=== PATIENT | female | born 1975 | race Caucasian/White ===

== ENCOUNTER 2018-03-20 07:13 | Inpatient (IN) | payer OTHER ==
[2018-03-20] MEDS ORDERED: Ondansetron PF 4 MG/2 ML Vial ONE ×3 (07:30→17:20)
[2018-03-20] MEDS ORDERED: Morphine 4 MG/ML VIAL ONE ×2 (07:30→08:52)
[2018-03-20] MEDS ORDERED: Lidocaine 1% w/Epinephrine 1:100K 20 ML VIAL ONE (07:45)
[2018-03-20 07:56] LABS: #Eosinphils 0.1 thou/uL (0.0-0.7); #Lymphocytes 1.5 thou/uL (1.20-3.40); #Monocytes 0.3 thou/uL (0.11-0.59); #Neutrophils 2.6 thou/uL (1.40-6.50); %Basophils 0.5 % (0.0-1.0); %Eosinophils 1.8 % (0.0-10.0); %Lymphocytes 33.2 % (21.0-51.0); %Monocytes 6.1 % (0.0-10.0); %Neutrophils 58.3 % (42.0-75.0); Hemoglobin 12.9 g/dL (12.0-16.0); Mean Corpuscular HGB CONC 32.1 g/dL (32.0-36.0); Mean Corpuscular Hemoglobin 28.5 pg (27.0-31.0); Mean Corpuscular Volume 88.8 fL (78.0-98.0); Mean Platelet Volume 9.2 fL (7.4-10.4); Platelet Count 211 thou/uL (130-400); RBC Distribution Width 11.9 % (11.5-14.5); Red Blood Cell (RBC) Count 4.52 mill/uL (4.20-5.40); White Blood Cell (WBC) Count 4.5 thou/uL (4.8-10.8)
[2018-03-20 07:57] LABS: BHCG - Serum Negative (NEGATIVE); Pregs Control Background? CLEAR/WHITE (CLR/WHITE); Pregs Control Bar Appear? YES (CONTROL BAR)
[2018-03-20 08:06] LABS: ALT (SGPT) 22 U/L (8-55); AST (SGOT) 19 U/L (5-34); Albumin 4.3 g/dL (3.5-5.0); Alkaline Phosphatase 67 U/L (40-150); Anion Gap 12 mmol/L (10-20); BUN (Urea Nitrogen) 12 mg/dL (7.0-18.7); Calc. Creatinine Clearance 0 mL/min (70-130); Calcium 9.1 mg/dL (7.8-10.44); Carbon Dioxide 27 mmol/L (22-29); Chloride 106 mmol/L (98-107); Estimated GFR-MDRD 74; Globulin 2.5 g/dL (2.4-3.5); Glucose 116 mg/dL (70-105); Potassium 3.7 mmol/L (3.5-5.1); Protein, Total 6.8 g/dL (6.0-8.3); Sodium 141 mmol/L (136-145)
[2018-03-20] MEDS ORDERED: Bacitracin Zinc 1 Packet ONE (08:33)
[2018-03-20] MEDS ORDERED: CEFAZOLIN 1 GM VIAL ONE ×2 (09:00→17:06)
[2018-03-20] MEDS ORDERED: Ondansetron PF 4 MG/2 ML Vial IV PRN ×2 (09:04→10:00)
[2018-03-20] MEDS ORDERED: Morphine 4 MG/ML VIAL SLOW IVP PRN ×2 (09:04→10:00)
--- NOTE | 2018-03-20 09:13 | RAD ---
FRONTAL VIEW CHEST: Indication: Pre-operative assessment. Fall on ice with injury and pain. FINDINGS: There is no lobar consolidation, effusion, or pneumothorax. Mild elevation of the left hemidiaphragm. The cardiac silhouette is normal in size. There is left convexity curvature of the thoracic spine. IMPRESSION: No focal consolidation. POS: TPC
--- NOTE | 2018-03-20 09:14 | RAD ---
LEFT LEG TWO VIEWS SERIES: Indication: Fall on ice with injury and pain. FINDINGS: There is a mildly displaced fracture involving the distal diaphysis of the tibia with approximately 1 /3 shaft width lateral displacement of major distal fracture fragment and approximately 1 cortex widt h posterior displacement. There is mild soft tissue prominence. IMPRESSION: Mildly displaced distal tibial diaphyseal fracture. POS: TPC
[2018-03-20] MEDS ORDERED: TETANUS AND DIPHTHERIA TOX/PF 0.5 ML DISP.SYRIN IM SCH ×2 (09:15→10:00)
[2018-03-20] MEDS ORDERED: Communication Order-Pharmacy FS SCH (09:15)
[2018-03-20] MEDS ORDERED: Sodium Chloride 0.9% 100 ML IV SCH (09:15)
--- NOTE | 2018-03-20 09:33 | RAD ---
TWO VIEWS LEFT KNEE: History: Pain, trauma, fall. FINDINGS: No fracture. No cortical irregularity or periosteal reaction. No joint effusion. Joint spaces are pre served. No malalignment. IMPRESSION: No post-traumatic change. POS: CARINA
[2018-03-20] MEDS ORDERED: [UNRECOGNIZED DRUG - REMARK] FS PRN (10:00)
[2018-03-20] MEDS ORDERED: Fentanyl 100 MCG/2 ML VIAL ONE ×4 (11:37→16:00)
[2018-03-20] MEDS ORDERED: Ketorolac Tromethamine 30 MG/ML VIAL IVP SCH ×2 (12:00)
[2018-03-20] MEDS ORDERED: Midazolam HCl 2 mg/2 ml Vial ONE (12:40)
[2018-03-20] MEDS ORDERED: Ondansetron PF 4 MG/2 ML Vial IVP PRN (12:59)
[2018-03-20] MEDS ORDERED: Ropivacaine HCl/PF 250 ML in Premix Bag 1 BAG NERVE BLCK SCH (12:59)
[2018-03-20] MEDS ORDERED: Zolpidem Tartrate 5 MG TAB PO PRN (12:59)
[2018-03-20] MEDS ORDERED: Promethazine HCl 25 MG/ML VIAL IM PRN (12:59)
[2018-03-20] MEDS ORDERED: fentaNYL Citrate/PF 2,000 MCG in Sodium Chloride 0.9% 60 ML IV PRN (13:03)
--- NOTE | 2018-03-20 14:43 | CON ---
DATE OF CONSULTATION: 03/20/2018 HISTORY OF PRESENT ILLNESS: This is a very pleasant 43-year-old woman, who was on her way to work here at [facility] [employer] when she stepped on her back porch steps which were icy. She fell and suffered an open tibia fracture grade 2. PAST MEDICAL HISTORY: Positive for hypothyroidism. She takes [place] Thyroid for that, otherwise negative. MEDICATIONS: Current medication: [place] Thyroid. ALLERGIES: TO MEDICATIONS, PENICILLIN CAUSED SOME TYPE OF REACTION AT THE OF HER LAST CHILD. OTHERWISE, SHE HAS HAD NO PROBLEMS WITH CEPHALOSPORINS. SOCIAL HISTORY: She does not smoke or drink. She has a good family support. 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 PHYSICAL EXAMINATION: GENERAL: Pleasant woman in no distress. HEENT: Normocephalic, atraumatic. LUNGS: Clear. HEART: Regular. ABDOMEN: Soft, nontender. EXTREMITIES: Left leg, she has a 2-cm laceration over an open tibia fracture. It is probably an inside out type wound. She has good sensation of toes. Good capillary refill on her toes. She is very tender over fibular head. LABORATORY DATA: Radiograph show spiral fracture of the tibial shaft, middle third and distal third junction. The fibular head is not visualized. The x-rays were suboptimal. PLAN: For knee films and irrigation and debridement of the open tibia with intramedullary fixation. She understands the risk of infection, blood clot, transfusion, elected to proceed with surgery. Job ID: [id number]
[2018-03-20] MEDS ORDERED: Bupivacaine PF 0.5% 30 ML VIAL ONE (15:33)
[2018-03-20] MEDS ORDERED: HYDROcodone/Acetaminophen 10/325 mg Tablet PO PRN (16:00)
[2018-03-20] MEDS ORDERED: CEFAZOLIN/Water 2 GM/20 ML SYRINGE SLOW IVP SCH (16:00)
[2018-03-20] MEDS ORDERED: Dexamethasone 20 MG/5 ML VIAL ONE (17:06)
[2018-03-20] MEDS ORDERED: Lidocaine 1% PF 5 ML VIAL ONE (17:06)
[2018-03-20] MEDS ORDERED: Ketorolac Tromethamine 30 MG/ML VIAL ONE (17:06)
[2018-03-20] MEDS ORDERED: PROPOFOL 200 MG/20 ML VIAL ONE (17:06)
--- NOTE | 2018-03-20 17:17 | RAD ---
2 VIEWS LEFT TIBIA AND FIBULA: Date: 03/20/18 COMPARISON: 03/20/18. HISTORY: Tibia fracture, status post repair. FINDINGS/IMPRESSION: Multiple limited intraoperative fluoroscopic views of the left tibia/fibula were submitted for interp retation. The patient is ongoing antegrade intramedullary katherin fixation of a distal tibial fracture. N o perihardware lucency is identified. POS: CARINA
[2018-03-20] MEDS ORDERED: Ondansetron PF 4 MG/2 ML Vial IVP SCH (17:30)
[2018-03-20] MEDS ORDERED: Metoclopramide HCl 10 MG/2 ML VIAL ONE ×6 (17:53→18:02)
[2018-03-20] MEDS ORDERED: LACTATED RINGER S IVP SCH (18:30)
[2018-03-20] MEDS ORDERED: METOCLOPRAMIDE HCL IVP SCH (18:30)
[2018-03-20] MEDS ORDERED: Bupivacaine HCl 0.5%/Epinephrine 1:200,000/PF 30 ml Vial ONE (19:07)
[2018-03-20] MEDS: Acetaminophen 1,000 MG in Premix Bag 1 BAG IVPB SCH ×2 (19:54→23:27)
[2018-03-20] MEDS ORDERED: Aspirin 81 mg Enteric Coated Tablet PO SCH (21:00)
[2018-03-20] MEDS: Ketorolac Tromethamine 30 MG/ML VIAL IVP SCH ×2 (21:48→23:27)
[2018-03-20] MEDS: Sodium Chloride 0.9% 1,000 ML IV SCH (21:49)
[2018-03-20] MEDS: Aspirin 81 mg Enteric Coated Tablet PO SCH (21:49)
[2018-03-20] MEDS: Acetaminophen 500 MG TAB PO SCH (21:50)
[2018-03-20] MEDS: CEFAZOLIN 2 GM/50 ML-DEXTROSE 2 GM in Premix Bag 1 BAG IVPB SCH (23:26)
[2018-03-20] MEDS: Sodium Chloride 0.9% 100 ML IV SCH ×3 (23:57→23:59)
[2018-03-21] MEDS: Acetaminophen 1,000 MG in Premix Bag 1 BAG IVPB SCH (06:13)
[2018-03-21] MEDS: CEFAZOLIN 2 GM/50 ML-DEXTROSE 2 GM in Premix Bag 1 BAG IVPB SCH ×2 (06:13→14:06)
[2018-03-21] MEDS: Ketorolac Tromethamine 30 MG/ML VIAL IVP SCH ×3 (06:14→18:11)
[2018-03-21] MEDS: Acetaminophen 500 MG TAB PO SCH ×3 (06:15→18:10)
[2018-03-21] MEDS: Sodium Chloride 0.9% 1,000 ML IV SCH ×2 (06:40→15:11)
[2018-03-21] MEDS: Aspirin 81 mg Enteric Coated Tablet PO SCH ×2 (08:38→20:39)
[2018-03-21] MEDS: Enoxaparin Sodium 40 MG/0.4 ML SYRINGE SC SCH (08:39)
[2018-03-21] MEDS ORDERED: Enoxaparin Sodium 40 MG/0.4 ML SYRINGE SC SCH (09:00)
--- NOTE | 2018-03-21 09:07 | RAD ---
RIGHT ANKLE 3 VIEWS: HISTORY: Pain after a fall. COMPARISON: None. FINDINGS: No acute fracture or malalignment. Mild lateral malleolar soft tissue swelling. No osteochondral de fect of the talar dome. No lateral talar shift. IMPRESSION: 1. Mild soft tissue swelling without acute fracture or malalignment. 2. Small dorsal talar neck spur can cause anterior ankle impingement in dorsiflexion. POS: TPC
[2018-03-21] MEDS ORDERED: Metoclopramide HCl 10 MG/2 ML VIAL IVP PRN (09:40)
[2018-03-21] MEDS ORDERED: Metoclopramide HCl 10 MG TAB PO PRN (09:43)
--- NOTE | 2018-03-21 10:14 | OP ---
DATE OF PROCEDURE: 03/20/2018 PREOPERATIVE DIAGNOSIS: Open left tibia fracture, grade 2. POSTOPERATIVE DIAGNOSIS: Open left tibia fracture, grade 2. HARBOUR MASTER: Carlos. COMPLICATION: None. SPECIMEN: None. DRAIN: None. TOURNIQUET TIME: 11 minutes, just for the initial irrigation. PROCEDURE PERFORMED: 1. Irrigation and debridement of skin, subcutaneous tissue, and bone. 2. Intramedullary nailing of left tibia. DESCRIPTION OF PROCEDURE: The patient was taken to the operating room, where general anesthesia was induced. She received Ancef in the emergency room. She received another 2 g in the operating room. The left leg was prepped and draped in sterile fashion. I extended the laceration proximally and distally. The fracture itself was exposed. It was probably an inside out type fracture, just a few specks of dirt, overall no significant gross contamination. These were removed mechanically. There was some speck of dirt in the bone, which was scraped with curette. I removed some devitalized subcutaneous tissue as well. Pulsatile lavage irrigation, 2 large bags, was performed. Fracture . I made an incision over the patellar tendon. Dissection was carried down to the patellar tendon, to the proximal tibia, opened this with a guide pin, checked under biplanar fluoroscopy, and opened with an 11 mm reamer. I then reamed sequentially up to 11.5 mm, used a [employer]ynthes nail 345 mm x 10 mm, one proximal screw was placed, two distal screws were placed for anatomical reduction of the fracture. Additional pulsatile lavage irrigation was performed. Patellar tendon was repaired with #1 Vicryl skin was closed with blake. Distally, subcutaneous tissue was closed with 2-0 Vicryl for the part that I opened surgically. The open fracture portion was just closed with blake, as was the rest of the skin. Sterile dressing was applied, and the patient was placed in splint. There were no complications. Job ID: [id number]
[2018-03-21] MEDS ORDERED: traMADol HCl 50 MG TAB PO PRN ×2 (11:54)
[2018-03-21] MEDS ORDERED: Zolpidem Tartrate 5 MG TAB PO PRN (11:54)
[2018-03-21] MEDS ORDERED: Ondansetron PF 4 MG/2 ML Vial IVP PRN (11:54)
[2018-03-21] MEDS ORDERED: Promethazine HCl 25 MG/ML VIAL IM PRN (11:54)
[2018-03-21] MEDS ORDERED: HYDROcodone/Acetaminophen 10/325 mg Tablet PO PRN ×2 (11:54)
[2018-03-21] MEDS ORDERED: Ropivacaine 0.2% 550 ML 550 ML NERVE BLCK SCH (11:54)
[2018-03-21] MEDS ORDERED: SODIUM CHLORIDE NERVE BLCK SCH ×2 (12:15→12:30)
[2018-03-21] MEDS ORDERED: ROPIVACAINE HCL NERVE BLCK SCH ×2 (12:15→12:30)
[2018-03-21] MEDS ORDERED: ADMIXTURE FEE NERVE BLCK SCH (12:30)
[2018-03-21] MEDS ORDERED: Fentanyl 100 MCG/2 ML VIAL SLOW IVP PRN (14:44)
[2018-03-21] MEDS ORDERED: Ropivacaine 0.5% HCl/PF (150 MG/30 ML VIAL) ONE (19:22)
[2018-03-22] MEDS: Ketorolac Tromethamine 30 MG/ML VIAL IVP SCH ×2 (00:31→05:38)
[2018-03-22 08:15] VITALS: BP 117/74; TEMP 97.9
[2018-03-22] MEDS: Enoxaparin Sodium 40 MG/0.4 ML SYRINGE SC SCH (08:32)
[2018-03-22] MEDS: Aspirin 81 mg Enteric Coated Tablet PO SCH (08:32)
== END 2018-03-22 11:30 | disposition home or self-care (01) | DRG 494 ==
LOC: ERS 07:13 → SURG B 09:51 → SDC 09:51 → SURG B 17:38
PROVIDERS: ADMIT Orthopaedic Surgery; ATTEND Orthopaedic Surgery
PROC: 0QBH0ZZ Excision of Left Tibia, Open Approach (ICD-10-PCS; principal; 2018-03-20)
PROC: 0QHH06Z Insertion of Intramedullary Internal Fixation Device into Left Tibia, Open Approach (ICD-10-PCS; 2018-03-20)
DX: S82.202B Unspecified fracture of shaft of left tibia, initial encounter for open fracture type I or II (principal); W19.XXXA Unspecified fall, initial encounter; Y92.9 Unspecified place or not applicable; E03.9 Hypothyroidism, unspecified; Z88.0 Allergy status to penicillin
CPT/HCPCS: 29515; 36415; 71045; 76001; 80053; 84703; 85025; 96365; 96375; 96376; A4306; C1713; C1769; G8978-GP-CK; G8979-GP-CI; J0131; J0670; J0690; J1100; J1650; J1885; J2001; J2250; J2270; J2405; J2704; J2765; J2795; J3010; J7050; J7120; S0020